=== PATIENT | male | born 1970 | race Caucasian/White ===

== ENCOUNTER 2017-01-12 11:05 | Emergency (ER) | payer BC ==
[~2017-01-12] VITALS: Ht 182.9 cm; Wt 63.5 kg
[2017-01-12 11:30] LABS: BASO % 1 % (0-3); EOS % 2 % (0-3); HEMATOCRIT 47.4 % (39.0-53.0); HEMOGLOBIN 15.9 g/dL (13.0-17.5); LYMPH # 1.2 x10^3/uL (1.0-4.8); LYMPH % 28 % (24-48); MEAN CORPUSCULAR HEMOGLOBIN 30 pg (25-35); MEAN CORPUSCULAR HGB CONC 34 g/dL (31-37); MEAN CORPUSCULAR VOLUME 90 fL (79-100); MONO % 9 % (0-9); NEUT % 61 % (31-73); PLATELET COUNT 183 x10^3/uL (140-400); RED BLOOD COUNT 5.29 x10^6/uL (4.30-5.70); WHITE BLOOD COUNT 4.4 x10^3/uL (4.0-11.0)
[2017-01-12] MEDS ORDERED: fentaNYL PF VIAL 100 MCG/2 ML VIAL IV PRN (11:30)
[2017-01-12] MEDS ORDERED: NITROGLYCERIN SUBLINGUAL 0.4 MG BOTTLE OF 25. SL PRN (11:30)
--- NOTE | 2017-01-12 11:36 | RAD ---
Indication chest pain. A AP views of the chest were obtained and are compared to an examination August 09, 2004. The heart and pulmonary vessels are normal. Several calcified left hilar lymph nodes are noted appearing similar. The lungs are clear of acute infiltrates. There is no pleural fluid or pneumothorax. A substantial change when compared to the previous exam is not seen. IMPRESSION: No acute finding. No significant change
[2017-01-12 11:43] LABS: CALCIUM 9.6 mg/dL (8.5-10.1); GFR 80.8; POTASSIUM 3.9 mmol/L (3.5-5.1)
[2017-01-12 11:43] LABS: BARBITURATES NEG (NEG); BENZODIAZEPINES NEG (NEG); CANNABINOIDS NEG (NEG); COCAINE NEG (NEG); METHADONE NEG (NEG); OPIATES NEG (NEG); PHENCYCLIDINE NEG (NEG)
[2017-01-12 11:49] LABS: ALBUMIN 4.3 g/dL (3.4-5.0); DIRECT BILIRUBIN 0.1 mg/dL (0.0-0.2); TOTAL BILIRUBIN 0.7 mg/dL (0.2-1.0); TOTAL PROTEIN 7.4 g/dL (6.4-8.2)
[2017-01-12] MEDS ORDERED: IV NORMAL SALINE 1000ML BAG 1,000 ML IV ONE (12:00)
--- NOTE | 2017-01-12 13:17 | EKG ---
[facility] [address] [place] [address] Test Date: 2017-01-12 Test Time: 11:09:22 Pat Name: SERG MCCLENDON Department: Room: Gender: M [employer]: : 1970 Requested By: BREANNA SORTO Order Number: [id number] Reading MD: Measurements Intervals [place] Rate: 97 P: 54 [place]: 188 QRS: -97 QRSD: 84 T: 56 QT: 348 QTc: 446 Interpretive Statements SINUS RHYTHM LEFT ATRIAL ABNORMALITY ABNORMAL RIGHT SUPERIOR AXIS DEVIATION S1,S2,S3 PATTERN QRS(T) CONTOUR ABNORMALITY CONSISTENT WITH ANTEROSEPTAL INFARCT AGE UNDETERMINED RI6.01 Unconfirmed report No previous ECG available for comparison
[2017-01-12 14:00] VITALS: BP 123/77
--- NOTE | 2017-01-12 16:35 | ED.ADGEN ---
Past Medical History Past Medical History: No Pertinent History Past Surgical History: Other Additional Past Surgical Histo: hernia repair Alcohol Use: Occasionally Drug Use: None Adult General Chief Complaint Chief Complaint: CHEST PAIN HPI HPI Patient is a 46 year old man, with no significant past no history, who presents the emergency department after being referred from an urgent care center, where he was being evaluated for chest pain. Patient states that he was told that he had "an abnormal ECG". Patient states he that he has been experiencing a chest pressure and pain that is worse with certain positions, especially lying flat, and sometimes a deep inspiration. Patient states he began feeling "rundown", about 4 days ago. He states he woke up this morning, initially just feeling rundown, and then gradually began developing this chest pressure. He states there is no radiation, it is not associated with shortness breath, nausea or vomiting, lightheadedness, diaphoresis, weakness, numbness, tingling, swelling extremities. He denies any URI type symptoms recently, states the pain does not get worse when leaning forward. Denies any family history of cardiac disease or of PE or DVT, denies any street himself. Denies recent travel or surgery. Patient states he has not taken any medication prior to coming to the ED. He is noted to be mildly tachycardic, heart rate in the low 100s, oxygen saturation is 99-100% on room air, blood pressure is 129/85. Review of Systems Review of Systems Constitutional: Denies fever or chills. [] Eyes: Denies change in visual acuity. [] HENT: Denies nasal congestion or sore throat. [] Respiratory: Denies cough or shortness of breath. [] Cardiovascular: Sternal chest pressure, worse with deep inspiration, and with sitting upright and motion. Is not worsened by leaning forward. GI: Denies abdominal pain, nausea, vomiting, bloody stools or diarrhea. [] : Denies dysuria. [] Musculoskeletal: Denies back pain or joint pain. [] Integument: Denies rash. [] Neurologic: Denies headache, focal weakness or sensory changes. [] Endocrine: Denies polyuria or polydipsia. [] Lymphatic: Denies swollen glands. [] Psychiatric: Denies depression or anxiety. [] Current Medications Current Medications Current Medications Medications (Trade) Dose Ordered Sig/Cedric Start Time Stop Time Status Last Admin Dose Admin Fentanyl Citrate (Fentanyl 2ml Vial) 25 mcg PRN Q15MIN PRN 01/12/17 11:30 01/12/17 14:48 DC 01/12/17 12:11 25 MCG Nitroglycerin (Nitrostat) 0.4 mg PRN Q5MIN PRN 01/12/17 11:30 01/12/17 14:48 DC Sodium Chloride 1,000 ml @ 1,000 mls/hr 1X ONCE 01/12/17 12:00 01/12/17 13:00 DC 01/12/17 12:09 1,000 MLS/HR Allergies Allergies Allergies Coded Allergies Type Severity Reaction Last Updated Verified No Known Drug Allergies 01/12/17 No Physical Exam Physical Exam Constitutional: Well developed, well nourished, no acute distress, non-toxic appearance. [] HENT: Normocephalic, atraumatic, bilateral external ears normal, oropharynx moist, no oral exudates, nose normal. [] Eyes: PERRLA, EOMI, conjunctiva normal, no discharge. [] Neck: Normal range of motion, no tenderness, supple, no stridor. [] Cardiovascular:Heart rate regular rhythm, no murmur,S1, S2, S3, no rubs or gallops. No chest wall crepitus or tenderness. Unable to reproduce symptoms with palpation. [] Lungs & Thorax: Bilateral breath sounds clear to auscultation, no wheezing, rhonchi, rales. Abdomen: Bowel sounds normal, soft, no tenderness, no masses, no pulsatile masses. [] Skin: Warm, dry, no erythema, no rash. [] Back: No tenderness, no CVA tenderness. [] Extremities: No tenderness, no cyanosis, no clubbing, ROM intact, no edema. [ Negative Homans sign.] Neurologic: Alert and oriented X 3, normal motor function, normal sensory function, no focal deficits noted. [] Psychologic: Affect normal, judgement normal, mood normal. [] Current Patient Data Vital Signs Vital Signs Date Time Temp Pulse Resp B/P (MAP) Pulse Ox O2 Delivery O2 Flow Rate FiO2 01/12/17 14:00 92 14 123/77 (92) 96 Room Air 01/12/17 11:10 98.0 98.0 Lab Values Laboratory Tests Test 01/12/17 11:15 01/12/17 11:20 Urine Opiates Screen Neg (NEG) Urine Methadone Screen Neg (NEG) Urine Barbiturates Neg (NEG) Urine Phencyclidine Screen Neg (NEG) Urine Amphetamine/Methamphetamine Neg (NEG) Urine Benzodiazepines Screen Neg (NEG) Urine Cocaine Screen Neg (NEG) Urine Cannabinoids Screen Neg (NEG) Urine Ethyl Alcohol Neg (NEG) White Blood Count 4.4 x10^3/uL (4.0-11.0) Red Blood Count 5.29 x10^6/uL (4.30-5.70) Hemoglobin 15.9 g/dL (13.0-17.5) Hematocrit 47.4 % (39.0-53.0) Mean Corpuscular Volume 90 fL (79-100) Mean Corpuscular Hemoglobin 30 pg (25-35) Mean Corpuscular Hemoglobin Concent 34 g/dL (31-37) Red Cell Distribution Width 13.0 % (11.5-14.5) Platelet Count 183 x10^3/uL (140-400) Neutrophils (%) (Auto) 61 % (31-73) Lymphocytes (%) (Auto) 28 % (24-48) Monocytes (%) (Auto) 9 % (0-9) Eosinophils (%) (Auto) 2 % (0-3) Basophils (%) (Auto) 1 % (0-3) Neutrophils # (Auto) 2.7 x10^3uL (1.8-7.7) Lymphocytes # (Auto) 1.2 x10^3/uL (1.0-4.8) Monocytes # (Auto) 0.4 x10^3/uL (0.0-1.1) Eosinophils # (Auto) 0.1 x10^3/uL (0.0-0.7) Basophils # (Auto) 0.0 x10^3/uL (0.0-0.2) D-Dimer (Belen) 0.33 ug/mlFEU (0.00-0.50) Sodium Level 141 mmol/L (136-145) Potassium Level 3.9 mmol/L (3.5-5.1) Chloride Level 102 mmol/L (98-107) Carbon Dioxide Level 32 mmol/L (21-32) Anion Gap 7 (6-14) Blood Urea Nitrogen 11 mg/dL (8-26) Creatinine 1.0 mg/dL (0.7-1.3) Estimated GFR (Cockcroft-Gault) 80.8 Glucose Level 102 mg/dL (70-99) H Calcium Level 9.6 mg/dL (8.5-10.1) Total Bilirubin 0.7 mg/dL (0.2-1.0) Direct Bilirubin 0.1 mg/dL (0.0-0.2) Aspartate Amino Transferase (AST) 30 U/L (15-37) Alanine Aminotransferase (ALT) 41 U/L (16-63) Alkaline Phosphatase 85 U/L (46-116) Troponin I Quantitative < 0.017 ng/mL (0.000-0.055) YS-Rex-D-Type Natriuretic Peptide 38 pg/mL (0-124) Total Protein 7.4 g/dL (6.4-8.2) Albumin 4.3 g/dL (3.4-5.0) Lipase 281 U/L (73-393) Laboratory Tests 01/12/17 11:20 Laboratory Tests 01/12/17 11:20 EKG EKG EC10/06/2011: 2:43 PM: ECG from urgent care center: Sinus rhythm, with poor R -wave progression, right axis deviation, contour normality is noted in the septal leads. No prior for comparison. Does not meet STEMI criteria. Abnormal ECG. As interpreted by me. EC: Sinus rhythm, heart rate 97 bpm, right axis deviation, contour normality is noted in the anterior septal leads, when compared to ECG from 2012 , some morphologic changes noted in in V2, and in the anterior leads, does not meet STEMI criteria. Abnormal ECG. As interpreted by me. Radiology/Procedures Radiology/Procedures [][facility] [address] [place] [address] IMAGING REPORT Signed PATIENT: SERG MCCLENDON ACCOUNT: [id number] : 1970 LOCATION: ER AGE: 46 SEX: M EXAM STATUS: PRE ER ORD. PHYSICIAN: BREANNA SORTO DO REASON: CP PROCEDURE: PORTABLE CHEST 1V Indication chest pain. A AP views of the chest were obtained and are compared to an examination August 09, 2004. The heart and pulmonary vessels are normal. Several calcified left hilar lymph nodes are noted appearing similar. The lungs are clear of acute infiltrates. There is no pleural fluid or pneumothorax. A substantial change when compared to the previous exam is not seen. IMPRESSION: No acute finding. No significant change DICTATED and SIGNED BY: NOAH SEWELL MD DATE: 01/12/17 113 CC: BREANNA SORTO DO ~ Course & Med Decision Making Course & Med Decision Making Pertinent Labs and Imaging studies reviewed. (See chart for details) Patient well-appearing, pain has been constant in nature since he awoke this morning. Was also preceded by several days of generalized malaise. Mild tachycardia resolved after administration of a fluids in the ED. Laboratory studies were unremarkable, including a d-dimer within normal limits. Patient does not have any risk factors for PE, he also has no known personal or family risk factors, no drug abuse, and no recent travel, no recent concerning infectious symptoms. Do not believe presentation is consistent with acute cardiac or pulmonary abnormalities, symptoms are more consistent with a viral type illness. I did discuss this in detail with the patient, he is resting more comfortably at this time, states he has very mild discomfort at times in the chest, but otherwise has no complaints. Repeat troponin is also negative and the ED. I did discuss findings as above with Dr. Collado of cardiology, after reviewing case as stated, no indication that the patient requires additional cardiac evaluation at this time, he recommends the patient contact his office on Sunday to schedule outpatient evaluation. I did discuss this with patient in detail, patient is agreeable with plan to follow-up in the evaluated. He is agreeable with plan to be discharged home, to use an inflammatory medications to treat his symptoms at this time, will return to the ED for any concerning symptoms which were discussed at bedside and also stiffness paperwork. Patient discharged home with family in stable condition with plan as above. Dragon Disclaimer Dragon Disclaimer This electronic medical record was generated, in whole or in part, using a voice recognition dictation system. Departure Impression: Primary Impression: Chest pain Additional Impression: Malaise Disposition: HOME, SELF-CARE Condition: IMPROVED Problem Qualifiers BREANNA SORTO DO Jan 12, 2017 16:35
== END 2017-01-12 14:27 | disposition home or self-care (01) ==
LOC: ER 11:05
DX: R07.89 Other chest pain (principal); R53.81 Other malaise; Z98.890 Other specified postprocedural states
CPT/HCPCS: 36415; 71010; 80048; 80076; 80305; 80320; 83690; 83880; 84484; 85027; 85379; 93005; 96361; 96374; 99285; J3010; J7030; G0481